=== PATIENT | female | born 1950 | race Caucasian/White ===

== ENCOUNTER 2017-01-22 09:42 | Outpatient (CLI) | payer BC ==
[~2017-01-22] VITALS: Ht 162.6 cm; Wt 71.8 kg
[~2017-01-22 09:42] MED LIST: ASPIRIN 81M81 MG/TA2 PO; CALCIUM 600 PLU1 TAB PO; MIRALAX PA17 GM/Dose PO; MULTI VITAMINS1 TAB PO; PRILOSEC 20MG20 MG PO
[2017-01-22 10:08] VITALS: BP 158/93; PULSE 76
[2017-01-22 11:00] VITALS: BP 140/79; PULSE 73
[2017-01-22 11:03] VITALS: BP 137/84; PULSE 72; TEMP 97.9
[2017-01-22 11:15] VITALS: BP 138/79; PULSE 75
[2017-01-22 11:47] LABS: CEREBROSPINAL TUBE #4; CSF APPEARANCE CLEAR; CSF COLOR COLORLESS
[2017-01-22 12:11] VITALS: BP 127/76; PULSE 72
[2017-01-22 12:50] VITALS: BP 122/73; PULSE 68
[2017-01-24 13:13] LABS: ALBUMIN CSF 8.8 mg/dL (<=27.0); CSF IGG/ALBUMIN 0.14 (<=0.21); CSF,IGG 1.2 mg/dL (<=8.1)
[2017-01-24 13:27] LABS: CSF-IGG INDEX 0.56 (<=0.85); IGG/ALBUMIN SERUM 0.25 (<=0.40)
== END 2017-01-22 13:00 | disposition home or self-care (01) ==
LOC: COL.RAD 09:42
PROVIDERS: Psychiatry & Neurology Neurology
DX: G62.9 Polyneuropathy, unspecified (principal)